=== PATIENT | female | born 1980 | race Two or more races ===

== ENCOUNTER 2018-04-14 07:14 | Inpatient (IN) | payer BC ==
[2018-04-14] MEDS ORDERED: Carboprost Tromethamine 250 MCG/1 ML Amp IM PRN (08:01)
[2018-04-14] MEDS ORDERED: Nalbuphine 10 MG/1 ML Vial IVPUSH PRN (08:01)
[2018-04-14] MEDS ORDERED: Tranexamic Acid 1,000 MG in Sodium Chloride 0.9% 100 ML IV PRN (08:01)
[2018-04-14] MEDS ORDERED: Sodium Chloride 0.9% 10 ML Syringe FLUSH PRN (08:01)
[2018-04-14] MEDS ORDERED: Sodium Chloride 0.9% 2.5 ML Syringe FLUSH PRN (08:01)
[2018-04-14] MEDS ORDERED: Water For Irrigation,Sterile 1,000 ML Container IRR PRN (08:01)
[2018-04-14] MEDS ORDERED: Ampicillin 2 GM in Sodium Chloride 0.9% 100 ML IV ONE (08:01)
[2018-04-14] MEDS ORDERED: Lidocaine 1% 50 ML MDV INJECT PRN (08:01)
[2018-04-14] MEDS ORDERED: Misoprostol 200 MCG Tab PO PRN (08:01)
[2018-04-14] MEDS ORDERED: Methylergonovine 0.2 MG/1 ML Amp IM PRN (08:01)
[2018-04-14] MEDS ORDERED: Oxytocin/0.9 % Sodium Chloride 30 UNIT/500 ML BAG IV SCH ×2 (08:15→09:30)
[2018-04-14] MEDS: Lactated Ringers 1,000 ML IV SCH ×3 (08:20→21:32)
[2018-04-14] MEDS ORDERED: Ampicillin 2 GM AdvVial IV ONE (08:29)
[2018-04-14] MEDS ORDERED: Sodium Chloride 0.9% 100 ML ONE (08:30)
[2018-04-14] MEDS ORDERED: Terbutaline 1 MG/ML SDV SUBCUT PRN (09:20)
[2018-04-14] MEDS ORDERED: Misoprostol 25 MCG (1/4 of 100 MCG) Tab VAG PRN ×2 (09:20)
[2018-04-14] MEDS ORDERED: Misoprostol 25 MCG (1/4 of 100 MCG) Tab PO ONE (09:37)
[2018-04-14] MEDS ORDERED: Ampicillin 1 GM in Sodium Chloride 0.9% 50 ML IV SCH (11:00)
[2018-04-14] MEDS: Ampicillin 1 GM in Sodium Chloride 0.9% 50 ML IV SCH ×3 (13:22→21:32)
[2018-04-14] MEDS ORDERED: Ondansetron 4 MG/2 ML SDV IVPUSH PRN (14:19)
[2018-04-14] MEDS: Butorphanol 1 MG/ML SDV IVPUSH PRN ×2 (15:19→16:26)
--- NOTE | 2018-04-14 18:59 | PCM.PREANE ---
Preanesthetic Assessment - Anesthesia/Transfusion/Family Hx Anesthesia History: No Prior Anesthesia Family History of Anesthesia Reaction: No Transfusion History: No Prior Transfusion(s) Intubation History: Unknown - Review of Systems General: No Symptoms Pulmonary: No Symptoms Cardiovascular: No Symptoms Gastrointestinal: No Symptoms Neurological: No Symptoms Other: Reports: None - Physical Assessment Height: 5 ft 1 in Weight: 65.317 kg ASA Class: 2 Mental Status: Alert & Oriented x3 Airway Class: Mallampati = 2 Dentition: Reports: Normal Dentition Thyro-Mental Finger Breadths: 3 Mouth Opening Finger Breadths: 3 ROM/Head Extension: Full Lungs: Clear to Auscultation, Normal Respiratory Effort Cardiovascular: Regular Rate, Regular Rhythm - Lab Values: Laboratory Last Values WBC 7.08 K/uL (4.0-11.0) 04/14/18 08:18 RBC 4.09 M/uL (4.30-5.90) L 04/14/18 08:18 Hgb 12.0 g/dL (12.0-16.0) 04/14/18 08:18 Hct 36.4 % (36.0-46.0) 04/14/18 08:18 MCV 89.0 fL (80.0-98.0) 04/14/18 08:18 MCH 29.3 pg (27.0-32.0) 04/14/18 08:18 MCHC 33.0 g/dL (31.0-37.0) 04/14/18 08:18 RDW Std Deviation 46.3 fl (28.0-62.0) 04/14/18 08:18 RDW Coeff of Edmar 14 % (11.0-15.0) 04/14/18 08:18 Plt Count 159 K/uL (150-400) 04/14/18 08:18 MPV 10.90 fL (7.40-12.00) 04/14/18 08:18 Nucleated RBC % 0.0 /100WBC 04/14/18 08:18 Nucleated RBCs # 0 K/uL 04/14/18 08:18 Membrane Rupture POSITIVE 04/14/18 07:46 Blood Type O POSITIVE 04/14/18 08:18 Antibody Screen NEGATIVE 04/14/18 08:18 - Allergies Allergies/Adverse Reactions: Allergies Allergy/AdvReac Type Severity Reaction Status Date / Time acetaminophen [From Tylenol] Allergy Airway Verified 10/10/15 11:38 Tightness ibuprofen Allergy Airway Verified 10/10/15 11:38 Tightness SHRIMP Allergy Airway Uncoded 10/10/15 11:38 Tightness - Acknowledgements Anesthesia Type Planned: Epidural Pt an Appropriate Candidate for the Planned Anesthesia: Yes Alternatives and Risks of Anesthesia Discussed w Pt/Guardian: Yes Pt/Guardian Understands and Agrees with Anesthesia Plan: Yes PreAnesthesia Questionnaire - Past Health History Medical/Surgical History: Denies Medical/Surgical History HEENT History: Reports: None Cardiovascular History: Reports: None Respiratory History: Reports: None Gastrointestinal History: Reports: GERD Genitourinary History: Reports: None [employer]CH[employer]ISING [employer] ASSOCIATE History: Reports: : 1 Para: 0 LMP (Approximate): Musculoskeletal History: Reports: None Neurological History: Reports: None Psychiatric History: Reports: None Endocrine/Metabolic History: Reports: None Hematologic History: Reports: None Immunologic History: Reports: None Oncologic (Cancer) History: Reports: None Dermatologic History: Reports: None - Infectious Disease History Infectious Disease History: Reports: None - Past Surgical History HEENT Surgical History: Reports: Other (See Below) Other HEENT Surgeries/Procedures: tooth extraction - SUBSTANCE USE Smoking Status *Q: Never Smoker Second Hand Smoke Exposure: No Recreational Drug Use History: No - HOME MEDS Home Medications: Home Meds Ferrous Sulfate [Iron] 325 mg PO 04/14/18 [History] Vits #93/Iron Fum/FA [ Formula Tablet] 1 each PO 04/14/18 [ History] - CURRENT (IN HOUSE) MEDS Current Meds: Current Medications Butorphanol Tartrate (Stadol) 1 mg IVPUSH ASDIRECTED PRN PRN Reason: Pain Last Admin: 04/14/18 16:26 Dose: 1 mg Carboprost Tromethamine (Hemabate Ds) 250 mcg IM ASDIRECTED PRN PRN Reason: Post Hemorrhage Tranexamic Acid 1,000 mg/ (Sodium Chloride) 110 mls @ 660 mls/hr IV ONETIME PRN PRN Reason: Bleeding Lactated Ringer's (Ringers, Lactated) 1,000 mls @ 150 mls/hr IV ASDIRECTED TURNER Last Admin: 04/14/18 16:30 Dose: 150 mls/hr Oxytocin/Sodium Chloride (Oxytocin 30 Unit/500 Ml-Ns) 30 unit in 500 mls @ 999 mls/hr IV TITRATE TURNER Oxytocin/Sodium Chloride (Oxytocin 30 Unit/500 Ml-Ns) 30 unit in 500 mls @ 2 mls/hr IV TITRATE TURNER; Protocol Last Titration: 04/14/18 15:57 Dose: 6 munits/min, 6 mls/hr Ampicillin Sodium 1 gm/ Sodium (Chloride) 50 mls @ 100 mls/hr IV Q4H [facility] Last Admin: 04/14/18 17:06 Dose: 100 mls/hr Lidocaine HCl (Xylocaine 1%) 50 ml INJECT ONETIME PRN PRN Reason: Laceration repair Methylergonovine Maleate (Methergine) 0.2 mg IM ASDIRECTED PRN PRN Reason: Post Hemorrhage Misoprostol (Cytotec) 200 mcg PO ONETIME PRN PRN Reason: Post Hemorrhage Misoprostol (Cytotec) 25 mcg VAG ONETIME PRN PRN Reason: Cervical Ripening Nalbuphine HCl (Nubain) 10 mg IVPUSH ASDIRECTED PRN PRN Reason: Pain (severe 7-10) Ondansetron HCl (Zofran) 4 mg IVPUSH Q6H PRN PRN Reason: Nausea/Vomiting Last Admin: 04/14/18 15:25 Dose: 4 mg Sodium Chloride (Saline Flush) 10 ml FLUSH ASDIRECTED PRN PRN Reason: Keep Vein Open Sodium Chloride (Saline Flush) 2.5 ml FLUSH ASDIRECTED PRN PRN Reason: Keep Vein Open Sterile Water (Sterile Water For Irrigation) 1,000 ml IRR ASDIRECTED PRN PRN Reason: delivery Terbutaline Sulfate (Brethine) 0.25 mg SUBCUT ASDIRECTED PRN PRN Reason: Tacysystole Discontinued Medications Ampicillin Sodium (Ampicillin) Confirm Administered Dose 4 gm IV .STK-MED ONE Stop: 04/14/18 08:30 Last Admin: 04/14/18 10:55 Dose: Not Given Ampicillin Sodium 2 gm/ Sodium (Chloride) 100 mls @ 200 mls/hr IV ONETIME ONE Stop: 04/14/18 08:30 Last Admin: 04/14/18 08:35 Dose: 200 mls/hr Sodium Chloride (Normal Saline) Confirm Administered Dose 100 mls @ as directed .ROUTE .STK-MED ONE Stop: 04/14/18 08:31 Last Admin: 04/14/18 10:55 Dose: Not Given Fentanyl/Bupivacaine HCl (Ftwmuukk-Qwbhb-Iw 2 Mcg/Ml-0.125%) Confirm Administered Dose 100 mls @ as directed JULIET LYNCH-MED ONE Stop: 04/14/18 18:20 Misoprostol (Cytotec) 25 mcg VAG ONETIME PRN PRN Reason: Cervical Ripening Last Admin: 04/14/18 09:36 Dose: 25 mcg Misoprostol (Cytotec) 25 mcg PO ONETIME ONE Stop: 04/14/18 09:38 Last Admin: 04/14/18 09:36 Dose: 25 mcg
[2018-04-14] MEDS ORDERED: Acetaminophen 500 MG Tab PO ONE (21:08)
[2018-04-15] MEDS ORDERED: Ampicillin/Sulbactam Na 3 GM in Sodium Chloride 0.9% 100 ML IV ONE (01:00)
[2018-04-15] MEDS: Lactated Ringers 1,000 ML IV SCH (01:20)
[2018-04-15] MEDS ORDERED: Bupivacaine 0.5% 10 ML SDV ONE (02:47)
[2018-04-15] MEDS ORDERED: Citric Acid/Sodium Citrate Solution 30 ML Cup ONE (02:50)
[2018-04-15] MEDS ORDERED: Oxytocin 10 Units/1 ML SDV ONE (03:06)
[2018-04-15] MEDS ORDERED: Sodium Chloride 0.9% 20 ML ONE (03:06)
[2018-04-15] MEDS ORDERED: Ondansetron 4 MG/2 ML SDV ONE (03:06)
[2018-04-15] MEDS ORDERED: ePHEDrine 50 MG/ML SDV ONE (03:06)
[2018-04-15] MEDS ORDERED: Morphine PF 1 MG/ML Amp ONE (03:11)
[2018-04-15] MEDS ORDERED: Acetaminophen/oxyCODONE 325-7.5 MG Tab PO PRN (03:35)
[2018-04-15] MEDS ORDERED: Naloxone 0.4 MG/ML Syringe IVPUSH PRN (03:38)
[2018-04-15] MEDS ORDERED: Ondansetron 4 MG/2 ML SDV IV PRN (03:50)
[2018-04-15] MEDS ORDERED: Aluminum Hydroxide/Magnesium Hydroxide/Simethicone Susp 30 ML Cup PO PRN (03:50)
[2018-04-15] MEDS ORDERED: Bisacodyl 10 MG Supp RECTAL PRN (03:50)
[2018-04-15] MEDS ORDERED: diphenhydrAMINE 50 MG/ML SDV IVPUSH PRN (03:50)
[2018-04-15] MEDS ORDERED: Simethicone 80 MG Tab.Chew PO PRN (03:50)
[2018-04-15] MEDS ORDERED: oxyCODONE 5 MG Tab PO PRN (03:50)
[2018-04-15] MEDS ORDERED: Lanolin 100% Cream 7 GM Tube TOP PRN (03:50)
--- NOTE | 2018-04-15 03:59 | PCM.OPNOTE ---
- General Post-Op/Procedure Note Date of Surgery/Procedure: 04/15/18 Operative Procedure(s): Primary low transverse section Findings: live female, 3160g, apgars 9/9, thick meconium, placenta intact, 3 vessel cord; normal tubes, ovaries, and uterus Pre Op Diagnosis: primary low transverse section, 39 1/7 weeks, abnormal heart tones Post-Op Diagnosis: same Anesthesia Technique: Epidural Primary Surgeon: Dipti Krueger Sdet: Lay Greenwood Pathology: placenta Fluid Replacement, Intraop: 1,000 EBL in mLs: 500 Complications: none known Condition: Stable Free Text/Narrative:: Dictation [id number]
[2018-04-15] MEDS ORDERED: Lactated Ringers 1,000 ML IV SCH (04:00)
--- NOTE | 2018-04-15 04:24 | PCM.POSTAN ---
POST ANESTHESIA ASSESSMENT - MENTAL STATUS Mental Status: Alert, Oriented - VITAL SIGNS SaO2: 99 (Room Air) - RESPIRATORY Respiratory Status: Respiratory Rate WNL, Airway Patent, O2 Saturation Stable - CARDIOVASCULAR CV Status: Pulse Rate WNL, Blood Pressure Stable - GASTROINTESTINAL GI Status: No Symptoms - POST OP HYDRATION Hydration Status: Adequate & Stable
[2018-04-15] MEDS ORDERED: Ampicillin/Sulbactam Na 1.5 GM in Sodium Chloride 0.9% 50 ML IV SCH (07:00)
[2018-04-15] MEDS: Ampicillin/Sulbactam Na 1.5 GM in Sodium Chloride 0.9% 50 ML IV SCH ×3 (07:42→19:10)
[2018-04-15] MEDS: Docusate Sodium 100 MG Cap PO SCH ×2 (08:55→20:36)
--- NOTE | 2018-04-15 10:35 | PCM48HPAN ---
Post Anesthesia Note - EVALUATION WITHIN 48HRS OF ANESTHETIC Vital Signs in Normal Range: Yes Patient Participated in Evaluation: Yes Respiratory Function Stable: Yes Airway Patent: Yes Cardiovascular Function Stable: Yes Hydration Status Stable: Yes Pain Control Satisfactory: Yes Nausea and Vomiting Control Satisfactory: Yes Mental Status Recovered: Yes Resp Rate: 14
--- NOTE | 2018-04-15 11:32 | OR ---
SURGEON: Dipti Krueger M.D. DATE OF PROCEDURE: 04/15/2018 PREOPERATIVE DIAGNOSES: 1. A 39 and 1-week intrauterine . 2. Abnormal heart tones. 3. Premature prolonged rupture of membranes. 4. Meconium-stained amniotic fluid. POSTOPERATIVE DIAGNOSES: 1. A 39 and 1-week intrauterine . 2. Abnormal heart tones. 3. Premature prolonged rupture of membranes. 4. Meconium-stained amniotic fluid. PROCEDURE: Primary low-transverse section. TRADEMARK AFFIXER: Rodri Greenwood MS4. ANESTHESIA: Epidural. ESTIMATED BLOOD LOSS: 500 mL. FLUIDS: 1000 mL crystalloid in OR. COMPLICATIONS: None. FINDINGS: Viable female. scores of 9 at 1 minute and 9 at 5 minutes. Weight of 3160 g. Intact placenta, three-vessel cord, meconium stained. Otherwise, normal-appearing pelvis. DISPOSITION: The patient to PACU. Infant to nursery. PROCEDURE IN DETAIL: Eh is a 37-year-old, G1, P0, at 39 and 1-week gestational age, who presents with spontaneous rupture of membranes. She, therefore, had no evidence of active labor and was induced with Cytotec followed by Pitocin. She had been induced throughout much of the day, and I assumed care on the evening of 04/14/2018 for on-call duties. At that time, she was found to be 4 cm dilated. heart tones were in the 150s. She just had noted to have meconium-stained amniotic fluid at this juncture. She is group B strep positive and has been receiving ampicillin prophylaxis. The patient was increasingly uncomfortable, underwent regional anesthesia from epidural, became more comfortable. Thereafter, an IUPC was placed to help monitor contractions more closely. Throughout the evening hours intermittently, there were variable and late decelerations. However, with positional changes, was able to recover nicely, maintained a heart tone baseline of 150s with variability. As the evening progressed, however, was not able to increase Pitocin much at all for an adequate pattern and continued to have recurrent decelerations. The patient also developed fever. She had been switched to Unasyn at 24 hours of rupture of membranes. Given the meconium-stained amniotic fluid, the recurrent late decelerations at this juncture, and still being only 5 cm dilated, felt it was best to proceed with delivery. The risks of the procedure were discussed with her including infection; bleeding; possible trauma to the surrounding bowel , bladder, and ureters; in case of excessive blood loss, need for a blood product transfusion; rare lifesaving circumstances; need for hysterectomy; risk for thromboembolic event; and risk of anesthesia. She and her voiced their understanding and agreed to proceed with C- section. Proper consent obtained. Anesthesia and nursing insecticide supervisor were then notified. The patient was taken to the operating room where she underwent re-bolus of her epidural, was placed in the dorsal supine position with a leftward tilt. SCDs to the lower extremities. Savage had already been placed to gravity. She was prepped and draped in the usual sterile fashion. She had received her Unasyn 3 g. A time-out was performed. Anesthesia was tested and found to be adequate. A Pfannenstiel skin incision was created and carried down to the level of the rectus fascia, which was incised in the midline and lateralized on either side sharply and bluntly. The superior aspect of the fascia was tented upwards, dissected sharply and bluntly away from the underlying muscles. In a similar aspect, from the inferior aspect of the fascia, rectus muscles were in the midline. Peritoneum was entered. Rectus muscles and peritoneum were now lateralized bluntly. The uterine position and position were palpated. Self-retaining retractor was gently placed. Uterovesical reflection was visualized. Bladder flap was created sharply and bluntly. Bladder was mobilized away from the lower uterine segment. A low-transverse hysterotomy was performed. The uterine cavity was entered bluntly with a scalpel. Hysterotomy was lateralized bluntly. Meconium- stained fluid was noted. The infant's head was flexed and delivered from the pelvis. Fundal pressure was applied. The 's head was delivered, followed by anterior shoulder, posterior shoulder, and remainder of the body without difficulty. The infant's oropharynx and nares were bulb suctioned. The infant had good tone, was vigorous and crying at delivery. The cord was clamped x2, cut, and handed off to the attending nursing staff as well as Dr. Leyva. Cord arterial, cord venous, cord blood sampling were obtained. The placenta was now delivered. The uterine cavity was cleared of all clot and debris. The hysterotomy was repaired using 0 Vicryl in a continuous running locked fashion followed by a re-imbricating layer. Areas of oozing were briefly ligated with [id number]-kwfam suture x2. Posterior aspect of the uterus inspected. No defects or hematomas were found to be forming. The region was well irrigated and suction dried. There was a small area of the right fundus with some increased vascularity, however, found to be hemostatic. The patient appears to be more of a hemangioma. The uterus returned to the abdominal cavity. Colonic gutters were cleared of all clot and debris, well irrigated, and suction dried. The hysterotomy was again inspected and found to be hemostatic. The self- retaining retractor was now gently removed. Bladder blade was placed. The hysterotomy was once again inspected and found to be hemostatic. Rectus muscles were reapproximated using 0 Vicryl in an inverted mattress suture technique. Anterior aspect of the muscle and posterior aspect of the fascia were closely inspected. Any areas of oozing were cauterized. The rectus fascia was reapproximated using 0 Vicryl in a continuous running fashion beginning laterally on each side and meeting in the midline. Subcutaneous tissue was well irrigated and suction dried. Any areas of oozing were cauterized. The skin edges were reapproximated using 3-0 Vicryl and a Joshua needle in a subcuticular fashion, followed by half-inch Steri-Strips Mastisol. Sponge, instrument, and needle counts were correct x2. Uterus remained firm. Hemostasis evident. The patient will go to the PACU in stable condition and the infant to nursery. KEENAN / ANKIT /[id number]
[2018-04-16] MEDS: Ampicillin/Sulbactam Na 1.5 GM in Sodium Chloride 0.9% 50 ML IV SCH (01:10)
--- NOTE | 2018-04-16 06:54 | PCM.PNPP ---
- General Info Date of Service: 04/16/18 Functional Status: Reports: Pain Controlled, Tolerating Diet, Ambulating, Urinating - Review of Systems General: Denies: Fever Pulmonary: Denies: Shortness of Breath, Pleuritic Chest Pain Cardiovascular: Denies: Chest Pain, Palpitations, Dyspnea on Exertion Gastrointestinal: Denies: Abdominal Pain Genitourinary: Denies: Dysuria, Flank Pain - General Info Date of Service: 04/16/18 - Patient Data Vital Signs - Most Recent: Last Vital Signs Temp 36.6 C 04/16/18 04:00 Pulse 65 04/16/18 04:00 Resp 18 04/16/18 04:00 BP 95/54 L 04/16/18 04:00 Pulse Ox 97 04/16/18 04:00 Weight - Most Recent: 144 lb I&O - Last 24 Hours: Intake & Output 04/15/18 04/15/18 04/16/18 14:59 22:59 06:59 Intake Total 1000 Output Total 1000 Balance 0 Lab Results - Last 24 Hours: Laboratory Results - last 24 hr 04/15/18 Range/Units 15:47 Hgb 10.8 L (12.0-16.0) g/dL Hct 32.1 L (36.0-46.0) % Med Orders - Current: Current Medications Al Hydroxide/Mg Hydroxide (Mag-Al Plus) 30 ml PO Q8H PRN PRN Reason: Heartburn Bisacodyl (Dulcolax) 10 mg RECTAL ONETIME PRN PRN Reason: Constipation Carboprost Tromethamine (Hemabate Ds) 250 mcg IM ASDIRECTED PRN PRN Reason: Post Hemorrhage Diphenhydramine HCl (Benadryl) 25 mg IVPUSH Q6H PRN PRN Reason: Itching or Nausea Docusate Sodium (Colace) 100 mg PO BID TURNER Last Admin: 04/15/18 20:36 Dose: 100 mg Emollient Ointment (Lansinoh Hpa) 0 gm TOP ASDIRECTED PRN PRN Reason: Sore Nipples Last Admin: 04/16/18 01:49 Dose: 2 tube Tranexamic Acid 1,000 mg/ (Sodium Chloride) 110 mls @ 660 mls/hr IV ONETIME PRN PRN Reason: Bleeding Lactated Ringer's (Ringers, Lactated) 1,000 mls @ 150 mls/hr IV ASDIRECTED TURNER Last Admin: 04/15/18 01:20 Dose: 150 mls/hr Oxytocin/Sodium Chloride (Oxytocin 30 Unit/500 Ml-Ns) 30 unit in 500 mls @ 999 mls/hr IV TITRATE TURNER Oxytocin/Sodium Chloride (Oxytocin 30 Unit/500 Ml-Ns) 30 unit in 500 mls @ 2 mls/hr IV TITRATE TURNER; Protocol Last Titration: 04/15/18 01:49 Dose: 0 munits/min, 0 mls/hr Lactated Ringer's (Ringers, Lactated) 1,000 mls @ 125 mls/hr IV ASDIRECTED TURNER Last Admin: 04/15/18 05:26 Dose: 125 mls/hr Methylergonovine Maleate (Methergine) 0.2 mg IM ASDIRECTED PRN PRN Reason: Post Hemorrhage Ondansetron HCl (Zofran) 4 mg IVPUSH Q6H PRN PRN Reason: Nausea/Vomiting Last Admin: 04/14/18 15:25 Dose: 4 mg Ondansetron HCl (Zofran) 4 mg IV Q4H PRN PRN Reason: Nausea/Vomiting Oxycodone HCl (Oxycodone) 5 mg PO Q3H PRN PRN Reason: Breakthrough Pain Oxycodone HCl (Oxycodone) 10 mg PO Q3H PRN PRN Reason: Breakthrough Pain Simethicone (Simethicone) 80 mg PO Q4H PRN PRN Reason: Gas Sodium Chloride (Saline Flush) 10 ml FLUSH ASDIRECTED PRN PRN Reason: Keep Vein Open Sodium Chloride (Saline Flush) 2.5 ml FLUSH ASDIRECTED PRN PRN Reason: Keep Vein Open Discontinued Medications Acetaminophen (Tylenol Extra Strength) 1,000 mg PO ONETIME ONE Stop: 04/14/18 21:09 Last Admin: 04/15/18 08:37 Dose: Not Given Ampicillin Sodium (Ampicillin) Confirm Administered Dose 4 gm IV .STK-MED ONE Stop: 04/14/18 08:30 Last Admin: 04/14/18 10:55 Dose: Not Given Bupivacaine HCl (Sensorcaine-Mpf 0.5%) Confirm Administered Dose 10 ml .ROUTE .STK-MED ONE Stop: 04/15/18 02:48 Last Admin: 04/15/18 08:36 Dose: Not Given Butorphanol Tartrate (Stadol) 1 mg IVPUSH ASDIRECTED PRN PRN Reason: Pain Last Admin: 04/14/18 16:26 Dose: 1 mg Citric Acid/Sodium Citrate (Bicitra Solution) Confirm Administered Dose 30 ml .ROUTE .STK-MED ONE Stop: 04/15/18 02:51 Last Admin: 04/15/18 08:36 Dose: Not Given Ephedrine Sulfate (Ephedrine Sulfate) Confirm Administered Dose 50 mg .ROUTE .STK-MED ONE Stop: 04/15/18 03:07 Ampicillin Sodium 2 gm/ Sodium (Chloride) 100 mls @ 200 mls/hr IV ONETIME ONE Stop: 04/14/18 08:30 Last Admin: 04/14/18 08:35 Dose: 200 mls/hr Sodium Chloride (Normal Saline) Confirm Administered Dose 100 mls @ as directed .ROUTE .ST-MED ONE Stop: 04/14/18 08:31 Last Admin: 04/14/18 10:55 Dose: Not Given Ampicillin Sodium 1 gm/ Sodium (Chloride) 50 mls @ 100 mls/hr IV Q4H [facility] Last Admin: 04/14/18 21:32 Dose: 100 mls/hr Fentanyl/Bupivacaine HCl (Bgjexvnv-Zfaec-Gh 2 Mcg/Ml-0.125%) Confirm Administered Dose 100 mls @ as directed EP .STK-MED ONE Stop: 04/14/18 18:20 Last Admin: 04/15/18 08:36 Dose: Not Given Ampicillin Sodium/Sulbactam (Sodium 3 gm/ Sodium Chloride) 100 mls @ 200 mls/ hr IV ONETIME ONE Stop: 04/15/18 01:29 Last Admin: 04/15/18 01:22 Dose: 200 mls/hr Ampicillin Sodium/Sulbactam (Sodium 1.5 gm/ Sodium Chloride) 50 mls @ 200 mls/ hr IV Q6H [facility] Stop: 04/16/18 01:14 Last Admin: 04/15/18 08:37 Dose: Not Given Sodium Chloride (Normal Saline) Confirm Administered Dose 20 mls @ as directed .ROUTE .STK-MED ONE Stop: 04/15/18 03:07 Ampicillin Sodium/Sulbactam (Sodium 1.5 gm/ Sodium Chloride) 50 mls @ 100 mls/ hr IV Q6H [facility]URNER Stop: 04/16/18 01:29 Last Infusion: 04/16/18 04:22 Dose: Infused Lidocaine HCl (Xylocaine 1%) 50 ml INJECT ONETIME PRN PRN Reason: Laceration repair Misoprostol (Cytotec) 200 mcg PO ONETIME PRN PRN Reason: Post Hemorrhage Misoprostol (Cytotec) 25 mcg VAG ONETIME PRN PRN Reason: Cervical Ripening Misoprostol (Cytotec) 25 mcg VAG ONETIME PRN PRN Reason: Cervical Ripening Last Admin: 04/14/18 09:36 Dose: 25 mcg Misoprostol (Cytotec) 25 mcg PO ONETIME ONE Stop: 04/14/18 09:38 Last Admin: 04/14/18 09:36 Dose: 25 mcg Morphine Sulfate (Duramorph Pf) Confirm Administered Dose 1 mg .ROUTE .STK-MED ONE Stop: 04/15/18 03:12 Nalbuphine HCl (Nubain) 10 mg IVPUSH ASDIRECTED PRN PRN Reason: Pain (severe 7-10) Naloxone HCl (Narcan) 0.1 mg IVPUSH ONETIME PRN PRN Reason: Respiratory Depression Stop: 04/16/18 03:38 Ondansetron HCl (Zofran) Confirm Administered Dose 8 mg .ROUTE .STK-MED ONE Stop: 04/15/18 03:07 Oxycodone/Acetaminophen (Percocet 325-7.5 Mg) 1 tab PO Q4H PRN PRN Reason: Abdominal Pain Oxytocin (Pitocin) Confirm Administered Dose 20 unit .ROUTE .STK-MED ONE Stop: 04/15/18 03:07 Sterile Water (Sterile Water For Irrigation) 1,000 ml IRR ASDIRECTED PRN PRN Reason: delivery Terbutaline Sulfate (Brethine) 0.25 mg SUBCUT ASDIRECTED PRN PRN Reason: Tacysystole - Infant Interaction Infant Disposition, : in Room with Family Infant Feeding: Breastfed Infant; Nursed Well, Encouraged to Breastfeed Support Person: , Friend - Recovery Exam Fundal Tone: Firm Fundal Level: At Umbilicus Fundal Placement: Midline Lochia Amount: Scant Lochia Color: Rubra/Red Perineum Description: Intact, Minimal Bruising/Swelling Episiotomy/Laceration: None Bladder Status: Indwelling Catheter in Place Urinary Elimination: Indwelling Catheter - Exam General: Alert, Oriented Lungs: Clear to Auscultation, Normal Respiratory Effort Cardiovascular: Regular Rate, Regular Rhythm GI/Abdominal Exam: Normal Bowel Sounds, Non-Tender Extremities: Non-Tender, Pedal Edema Skin: Warm Wound/Incisions: Healing Well Psy/Mental Status: Alert, Normal Affect, Normal Mood - Problem List & Annotations (1) delivery delivered SNOMED Code(s): 953976836 Code(s): O82 - ENCOUNTER FOR DELIVERY WITHOUT INDICATION Status: Acute Current Visit: Yes - Problem List Review Problem List Initiated/Reviewed/Updated: Yes - Assessment Assessment:: POD#1, s/p Primary , stable and afebrile,s/p 24 hours of Abx for intrapartum fever Doing well. - Plan Plan:: Continue routine care and anticipate discharge tomorrow.
[2018-04-16] MEDS: oxyCODONE 5 MG Tab PO PRN ×3 (08:53→20:58)
[2018-04-16] MEDS: Docusate Sodium 100 MG Cap PO SCH ×2 (08:53→20:58)
[2018-04-17] MEDS: oxyCODONE 5 MG Tab PO PRN ×2 (03:53→07:53)
[2018-04-17] MEDS ORDERED: Furosemide 20 MG Tab PO ONE (06:53)
--- NOTE | 2018-04-17 06:53 | PCM.PNPP ---
- General Info Date of Service: 04/17/18 Functional Status: Reports: Pain Controlled, Tolerating Diet, Ambulating, Urinating - Review of Systems General: Reports: No Symptoms HEENT: Reports: No Symptoms Pulmonary: Reports: No Symptoms Cardiovascular: Reports: No Symptoms Gastrointestinal: Reports: No Symptoms Genitourinary: Reports: No Symptoms Musculoskeletal: Reports: No Symptoms Skin: Reports: No Symptoms Neurological: Reports: No Symptoms Psychiatric: Reports: No Symptoms - General Info Date of Service: 04/10/18 - Patient Data Vital Signs - Most Recent: Last Vital Signs Temp 36.8 C 04/17/18 04:00 Pulse 68 04/17/18 04:00 Resp 18 04/17/18 04:00 BP 102/58 L 04/17/18 04:00 Pulse Ox 97 04/17/18 04:00 Weight - Most Recent: 65.317 kg Med Orders - Current: Current Medications Al Hydroxide/Mg Hydroxide (Mag-Al Plus) 30 ml PO Q8H PRN PRN Reason: Heartburn Bisacodyl (Dulcolax) 10 mg RECTAL ONETIME PRN PRN Reason: Constipation Carboprost Tromethamine (Hemabate Ds) 250 mcg IM ASDIRECTED PRN PRN Reason: Post Hemorrhage Diphenhydramine HCl (Benadryl) 25 mg IVPUSH Q6H PRN PRN Reason: Itching or Nausea Docusate Sodium (Colace) 100 mg PO BID TURNER Last Admin: 04/16/18 20:58 Dose: 100 mg Emollient Ointment (Lansinoh Hpa) 0 gm TOP ASDIRECTED PRN PRN Reason: Sore Nipples Last Admin: 04/16/18 01:49 Dose: 2 tube Tranexamic Acid 1,000 mg/ (Sodium Chloride) 110 mls @ 660 mls/hr IV ONETIME PRN PRN Reason: Bleeding Lactated Ringer's (Ringers, Lactated) 1,000 mls @ 150 mls/hr IV ASDIRECTED TURNER Last Admin: 04/15/18 01:20 Dose: 150 mls/hr Oxytocin/Sodium Chloride (Oxytocin 30 Unit/500 Ml-Ns) 30 unit in 500 mls @ 999 mls/hr IV TITRATE TURNER Oxytocin/Sodium Chloride (Oxytocin 30 Unit/500 Ml-Ns) 30 unit in 500 mls @ 2 mls/hr IV TITRATE TURNER; Protocol Last Titration: 04/15/18 01:49 Dose: 0 munits/min, 0 mls/hr Lactated Ringer's (Ringers, Lactated) 1,000 mls @ 125 mls/hr IV ASDIRECTED TURNER Last Admin: 04/15/18 05:26 Dose: 125 mls/hr Methylergonovine Maleate (Methergine) 0.2 mg IM ASDIRECTED PRN PRN Reason: Post Hemorrhage Ondansetron HCl (Zofran) 4 mg IVPUSH Q6H PRN PRN Reason: Nausea/Vomiting Last Admin: 04/14/18 15:25 Dose: 4 mg Ondansetron HCl (Zofran) 4 mg IV Q4H PRN PRN Reason: Nausea/Vomiting Oxycodone HCl (Oxycodone) 5 mg PO Q3H PRN PRN Reason: Breakthrough Pain Last Admin: 04/17/18 03:53 Dose: 5 mg Oxycodone HCl (Oxycodone) 10 mg PO Q3H PRN PRN Reason: Breakthrough Pain Simethicone (Simethicone) 80 mg PO Q4H PRN PRN Reason: Gas Sodium Chloride (Saline Flush) 10 ml FLUSH ASDIRECTED PRN PRN Reason: Keep Vein Open Sodium Chloride (Saline Flush) 2.5 ml FLUSH ASDIRECTED PRN PRN Reason: Keep Vein Open Discontinued Medications Acetaminophen (Tylenol Extra Strength) 1,000 mg PO ONETIME ONE Stop: 04/14/18 21:09 Last Admin: 04/15/18 08:37 Dose: Not Given Ampicillin Sodium (Ampicillin) Confirm Administered Dose 4 gm IV .STK-MED ONE Stop: 04/14/18 08:30 Last Admin: 04/14/18 10:55 Dose: Not Given Bupivacaine HCl (Sensorcaine-Mpf 0.5%) Confirm Administered Dose 10 ml .ROUTE .STK-MED ONE Stop: 04/15/18 02:48 Last Admin: 04/15/18 08:36 Dose: Not Given Butorphanol Tartrate (Stadol) 1 mg IVPUSH ASDIRECTED PRN PRN Reason: Pain Last Admin: 04/14/18 16:26 Dose: 1 mg Citric Acid/Sodium Citrate (Bicitra Solution) Confirm Administered Dose 30 ml .ROUTE .STK-MED ONE Stop: 04/15/18 02:51 Last Admin: 04/15/18 08:36 Dose: Not Given Ephedrine Sulfate (Ephedrine Sulfate) Confirm Administered Dose 50 mg .ROUTE .STK-MED ONE Stop: 04/15/18 03:07 Ampicillin Sodium 2 gm/ Sodium (Chloride) 100 mls @ 200 mls/hr IV ONETIME ONE Stop: 04/14/18 08:30 Last Admin: 04/14/18 08:35 Dose: 200 mls/hr Sodium Chloride (Normal Saline) Confirm Administered Dose 100 mls @ as directed .ROUTE .STK-MED ONE Stop: 04/14/18 08:31 Last Admin: 04/14/18 10:55 Dose: Not Given Ampicillin Sodium 1 gm/ Sodium (Chloride) 50 mls @ 100 mls/hr IV Q4H [facility] Last Admin: 04/14/18 21:32 Dose: 100 mls/hr Fentanyl/Bupivacaine HCl ([id number] 2 Mcg/Ml-0.125%) Confirm Administered Dose 100 mls @ as directed EP .STK-MED ONE Stop: 04/14/18 18:20 Last Admin: 04/15/18 08:36 Dose: Not Given Ampicillin Sodium/Sulbactam (Sodium 3 gm/ Sodium Chloride) 100 mls @ 200 mls/ hr IV ONETIME ONE Stop: 04/15/18 01:29 Last Admin: 04/15/18 01:22 Dose: 200 mls/hr Ampicillin Sodium/Sulbactam (Sodium 1.5 gm/ Sodium Chloride) 50 mls @ 200 mls/ hr IV Q6H [facility] Stop: 04/16/18 01:14 Last Admin: 04/15/18 08:37 Dose: Not Given Sodium Chloride (Normal Saline) Confirm Administered Dose 20 mls @ as directed .ROUTE .STK-MED ONE Stop: 04/15/18 03:07 Ampicillin Sodium/Sulbactam (Sodium 1.5 gm/ Sodium Chloride) 50 mls @ 100 mls/ hr IV Q6H [facility] Stop: 04/16/18 01:29 Last Infusion: 04/16/18 04:22 Dose: Infused Lidocaine HCl (Xylocaine 1%) 50 ml INJECT ONETIME PRN PRN Reason: Laceration repair Misoprostol (Cytotec) 200 mcg PO ONETIME PRN PRN Reason: Post Hemorrhage Misoprostol (Cytotec) 25 mcg VAG ONETIME PRN PRN Reason: Cervical Ripening Misoprostol (Cytotec) 25 mcg VAG ONETIME PRN PRN Reason: Cervical Ripening Last Admin: 04/14/18 09:36 Dose: 25 mcg Misoprostol (Cytotec) 25 mcg PO ONETIME ONE Stop: 04/14/18 09:38 Last Admin: 04/14/18 09:36 Dose: 25 mcg Morphine Sulfate (Duramorph Pf) Confirm Administered Dose 1 mg .ROUTE .STK-MED ONE Stop: 04/15/18 03:12 Nalbuphine HCl (Nubain) 10 mg IVPUSH ASDIRECTED PRN PRN Reason: Pain (severe 7-10) Naloxone HCl (Narcan) 0.1 mg IVPUSH ONETIME PRN PRN Reason: Respiratory Depression Stop: 04/16/18 03:38 Ondansetron HCl (Zofran) Confirm Administered Dose 8 mg .ROUTE .STK-MED ONE Stop: 04/15/18 03:07 Oxycodone/Acetaminophen (Percocet 325-7.5 Mg) 1 tab PO Q4H PRN PRN Reason: Abdominal Pain Oxytocin (Pitocin) Confirm Administered Dose 20 unit .ROUTE .STK-MED ONE Stop: 04/15/18 03:07 Sterile Water (Sterile Water For Irrigation) 1,000 ml IRR ASDIRECTED PRN PRN Reason: delivery Terbutaline Sulfate (Brethine) 0.25 mg SUBCUT ASDIRECTED PRN PRN Reason: Tacysystole - Interaction Disposition, : in Room with Family Infant Interaction: Holding Infant Feeding: Breastfed Infant; Nursed Well, Encouraged to Breastfeed Support Person: , Friend - Recovery Exam Fundal Tone: Firm Fundal Level: 1 Fingerbreadths Below Umbilicus Fundal Placement: Midline Lochia Amount: Scant Lochia Color: Rubra/Red Perineum Description: Intact, Minimal Bruising/Swelling Episiotomy/Laceration: None Bladder Status: Voiding Urinary Elimination: Voided - Exam General: Alert, Oriented HEENT: Pupils Equal Neck: Supple Lungs: Clear to Auscultation, Normal Respiratory Effort Cardiovascular: Regular Rate, Regular Rhythm GI/Abdominal Exam: Normal Bowel Sounds, Soft, Non-Tender, No Distention, No Abnormal Bruit Extremities: Normal Inspection, Non-Tender, No Pedal Edema Skin: Warm, Dry, Intact Neurological: No New Focal Deficit Psy/Mental Status: Alert, Normal Affect, Normal Mood - Problem List & Annotations (1) delivery delivered SNOMED Code(s): 839639079 Code(s): O82 - ENCOUNTER FOR DELIVERY WITHOUT INDICATION Status: Acute Current Visit: Yes - Problem List Review Problem List Initiated/Reviewed/Updated: Yes - Assessment Assessment:: POD#2, s/p Primary , stable and afebrile, ambulating, would like to go home today, legs are swollen equally bilaterally. Will give oral lasix prior to discharge. - Plan Plan:: Dismiss to home today, discharge instructions reviewed.
[2018-04-17] MEDS: Docusate Sodium 100 MG Cap PO SCH (09:26)
== END 2018-04-17 11:55 | disposition home or self-care (01) | DRG 540 ==
LOC: MW.OBCHECK 07:14 → MW.OB 07:17 → MW.OBCHECK 08:01 → MW.OB 08:29 → OBSVTOIN 04-15 03:14 → MW.OB 04-15 03:56
PROVIDERS: ADMIT Obstetrics & Gynecology; ATTEND Obstetrics & Gynecology
PROC: 10D00Z1 Extraction of Products of Conception, Low, Open Approach (ICD-10-PCS; principal; 2018-04-15)
PROC: 3E0P7VZ Introduction of Hormone into Female Reproductive, Via Natural or Artificial Opening (ICD-10-PCS; 2018-04-15)
PROC: 3E033VJ Introduction of Other Hormone into Peripheral Vein, Percutaneous Approach (ICD-10-PCS; 2018-04-15)
PROC: 10H07YZ Insertion of Other Device into Products of Conception, Via Natural or Artificial Opening (ICD-10-PCS; 2018-04-15)
DX: O76 Abnormality in fetal heart rate and rhythm complicating labor and delivery (principal); O42.12 Full-term premature rupture of membranes, onset of labor more than 24 hours following rupture; O77.0 Labor and delivery complicated by meconium in amniotic fluid; O99.824 Streptococcus B carrier state complicating childbirth; O75.2 Pyrexia during labor, not elsewhere classified; Z3A.39 39 weeks gestation of pregnancy; Z37.0 Single live birth
CPT/HCPCS: 36415; 51702; 59025; 82803; 84112; 85014; 85018; 85027; 86850; 86900; 86901; A9270-GY; J0287; J0290; J0295; J0595; J2274; J2405; J2590; J7030; J7050; J7120